=== PATIENT | female | born 1975 | race Caucasian/White ===

== ENCOUNTER 2019-07-27 08:47 | Observation (INO) ==
[2019-07-27] MEDS ORDERED: PROCHLORPERAZINE EDISYLATE 5 MG/ML VIAL IM ONE (09:25)
[2019-07-27] MEDS ORDERED: diphenhydrAMINE HCL 50 MG/ML VIAL IM ONE (09:25)
--- NOTE | 2019-07-27 09:31 | ERNOTE ---
Medical Problem HPI - Narrative Date of Service: 07/27/19 - General Chief Complaint: General Assessment Time Seen by Provider: 07/27/19 09:17 Source: patient Exam Limitations: no limitations - Immun/Allergies/Home Medications Immunizations: IMMUNIZATION HX Immunizations Up to Date Yes History of Influenza Vaccine No Hx Pneumococcal Vaccination No Allergies/Adverse Reactions: Allergies aspirin Allergy (Intermediate, Verified 07/22/19 08:09) Swelling of Face prednisone Allergy (Verified 07/22/19 08:09) Anaphylaxis Home Medications: HOME MEDICATIONS Amitriptyline HCl 100 mg PO HS 09/03/18 [Last Taken Unknown] Butalbital/Aspirin/Caffeine [Llfpyednvb-YDB-Xdluomzc Cap] 1 tab PO Q4H PRN 09/03/18 [Last Taken 09/03/18 12:00] Divalproex Sodium [Depakote] 1,000 mg PO DAILY 09/03/18 [Last Taken Unknown] Divalproex Sodium [Depakote] 1,500 mg PO HS 09/03/18 [Last Taken Unknown] Citalopram Hydrobromide [Celexa] 20 mg PO DAILY 02/01/19 [Last Taken Unknown] Eslicarbazepine Acetate [Aptiom] 800 mg PO DAILY 02/01/19 [Last Taken Unknown] LORazepam [Ativan] 1 mg PO PRN PRN 02/01/19 [Last Taken Unknown] Lacosamide [Vimpat] 200 mg PO DAILY 02/01/19 [Last Taken Unknown] Ondansetron [Zofran Odt] 4 mg PO Q6H PRN #20 tab 02/01/19 [Last Taken Unknown] Escitalopram Oxalate [Lexapro] 20 mg PO DAILY 07/22/19 [Last Taken Unknown] - History of Present History Narrative: Patient presents to the ED for not feeling well. She has a seizure Thursday and has not felt well since. She is concerned about Covid-19 because she had an exposure. She feels achy all over. Feels like she has had a fever. Has been coughing, bringing up sputum but does not know the color. Feels nauseated and occasional vomiting. Diarrhea also with this. No abdominal pain. No dysuria. Was seen for the seizure. States she missed work all week and will need a work note. Chest tightness, no specific CP, tightness mostly with cough. Timing: constant Severity: moderate Modifying Factors - (Improves): Present: other - nothing Modifying Factors - (Worsens): Present: other - nothing Review of Systems - Review of Systems Constitutional: Present: fever EYE: Present: no symptoms reported ENT: Absent: pulling on ears Respiratory: Present: cough Cardiology: Absent: chest pain, syncope Gastrointestinal/Abdominal: Present: nausea, vomiting, diarrhea. Absent: abdominal pain Genitourinary: Absent: dysuria Neurological: Absent: weakness All Other Systems: All systems neg except as marked Medical History (Last Reviewed 07/27/19 @ 09:30 by Rocky Rubi MD) Epilepsy Hx of endometriosis Hx of type 2 diabetes mellitus Surgical History: Surgical History (Last Reviewed 07/27/19 @ 09:30 by Rocky Rubi MD) Hx of bilateral oophorectomy Hx of gastric bypass Hx of hysterectomy Family History: Family History (Last Reviewed 07/27/19 @ 09:30 by Rocky Rubi MD) Other No pertinent family history Social History: (Last Reviewed 07/27/19 @ 09:30 by Rocky Rubi MD) Tobacco: Smoking Status: Current every day smoker Smoking cigarettes per day: 20 Alcohol: alcohol intake: never Substance Use: substance use type: does not use Physical Exam - Physical Exam General Appearance: Present: alert, no apparent distress Head Exam: Present: normal inspection, no evidence of injury Eye Exam: Normal inspection: bilateral, PERRL: bilateral Ears, Nose, Throat: Present: normal ENT inspection Neck: Present: normal inspection Respiratory: Present: no respiratory distress, normal breath sounds, no accessory muscle use, lungs clear Cardiovascular/Chest: Present: regular rate, rhythm, normal peripheral pulses Gastrointestinal/Abdominal: Present: normal bowel sounds, nontender, soft, other - I can elicit no tenderness in the abdomen Back Exam: Absent: CVA tenderness (R), CVA tenderness (L) Extremity Exam: Present: normal inspection, normal range of motion Neurological Exam: Present: alert, no motor/sensory deficits Skin Exam: Present: normal color, warm/dry Progress - Results and Orders Patient's Lab Results:: I have reviewed the patient's lab results. - Vital Signs Patient's Vital Signs:: I have reviewed the patient's vital signs. Vital Signs: Vital Signs 07/27/19 08:53 Temperature 36.4 C Pulse Rate 96 Respiratory Rate 16 Blood Pressure 122/89 O2 Sat by Pulse Oximetry 97 - EKG EKG #1 EKG: NSR EKG read: Interp. by me EKG Comments: NSR rate 83. No evidence of acute infarct or ischemic pattern. - X-Ray X-Ray #1 X-Ray: chest Interpretation: Interp. by me X-ray Comments: I reviewed official radiology report - Progress/Reassessment Chief Complaint: General Assessment Progress Note-Subjective: 07/27/19 13:36 Patient given IV fluids and IV ABx. ASA given (she does not have a true allergy.). Non-specific chest tightness for days with minimally elevated troponin, no STEMI non EKG, needs troponin trending. She understands no Cardi ology here and would like to stay here. D/W Dr Jenkins who will admit. Covid-19 testing negative. I discussed the trichomonas testing with her. Departure Clinical Impression: Elevated troponin, UTI (urinary tract infection), Vomiting and diarrhea, Trichomoniasis - Departure Disposition: Still a patient Condition: Stable
[2019-07-27 10:18] LABS: Hematocrit 40.4 % (37.0-47.0); Hemoglobin 13.5 gm/dL (12.5-16.0); Mean Cell Volume 99.3 fl (78-100); Mean Corpuscular Hemoglobin 33.2 pg (27-31); Mean Corpuscular Hgb Conc 33.4 g/dl (32-36); Mean Platelet Volume 10.8 fl (8-12.5); Neutrophil # 7.9 K/mm3 (1.3-6.0); Neutrophil % 76.5 % (42-75.0); Platelet Count 216 K/mm3 (150-450); Red Blood Count 4.07 M/mm3 (4.2-5.4); Red Cell Distribution Width 12.7 % (11.5-14.0); White Blood Count 10.3 K/mm3 (4.0-10.5)
[2019-07-27 10:35] LABS: ALT 19 U/L (19-67); AST 20 U/L (0-48); Albumin * 3.7 gm/dl (3.4-5.0); Alkaline Phosphatase * 81 U/L (50-170); Anion Gap 9.7 mmol/L (6.8-13.8); BUN/Creatinine Ratio 8.5 (9.0-21.6); Bilirubin, Total 0.4 mg/dL (0.0-1.1); Blood Urea Nitrogen 10 mg/dL (3-23); CK Total * 88 U/L (0-259); Ca. Corrected For Albumin 8.6 mg/dL (8.4-10.2); Calcium * 8.7 mg/dL (7.9-10.9); Carbon Dioxide 28.6 mmol/L (24-32.6); Chloride 104 mmol/L (97-106); Glucose * 111 mg/dL (70-110); Potassium 4.3 mmol/L (3.4-4.6); Sodium 138 mmol/L (132-142); Total Protein 7.6 gm/dL (6.2-8.2)
[2019-07-27 10:59] LABS: Troponin I 0.119 ng/mL (0.00-0.10)
[2019-07-27] MEDS ORDERED: NITROGLYCERIN 0.4 MG/TAB BTL SL ONE (11:07)
[2019-07-27] MEDS ORDERED: ASPIRIN 81 MG TAB.CHEW PO ONE (11:07)
[2019-07-27] MEDS ORDERED: NORMAL SALINE 1,000 ML IV ONE ×2 (11:22→16:55)
[2019-07-27 11:53] LABS: Urine Bilirubin Negative (NEGATIVE); Urine Blood Negative /ul (NEGATIVE); Urine Ketone Negative (NEGATIVE); Urine Nitrite Negative (NEGATIVE); Urine Protein 15 mg/dL (NEGATIVE); Urine pH 7.5 pH (5.0-7.0)
[2019-07-27 12:15] LABS: Urine Appearance Slightly Cloudy (CLEAR); Urine Color Yellow; Urine WBC 25-50 /hpf (0-5)
[2019-07-27 12:16] LABS: Urine Bacteria 3+; Urine RBC None Seen /hpf (0-5); Urine Trichomonas Few - 1+
[2019-07-27] MEDS ORDERED: cefTRIAXone SODIUM 1,000 MG/100 ML BAG IV ONE (12:29)
[2019-07-27] MEDS ORDERED: metroNIDAZOLE 500 MG TABLET PO ONE (12:30)
[2019-07-27] MEDS ORDERED: ONDANSETRON HCL/PF 2 MG/ML VIAL IV PRN (16:24)
[2019-07-27] MEDS ORDERED: ACETAMINOPHEN 325 MG TABLET PO PRN (16:25)
[2019-07-27] MEDS ORDERED: LOPERAMIDE HCL 2 MG CAPSULE PO PRN (16:25)
[2019-07-27] MEDS ORDERED: clonazePAM 1 MG TABLET PO PRN (16:30)
[2019-07-27] MEDS ORDERED: BUTALBITAL PO PRN (16:30)
[2019-07-27] MEDS ORDERED: CAFFEINE PO PRN (16:30)
[2019-07-27] MEDS ORDERED: ASPIRIN PO PRN (16:30)
--- NOTE | 2019-07-27 17:15 | HP ---
Chief Complaint - Chief Complaint Date of Service: 07/27/19 Time of Service: 16:56 Chief Complaint: I have chest pressure, fever, nausea, vomiting, and diarrhea since Thursday. History of Present Illness: 43-year-old female with past medical history of epilepsy, morbid obesity, type 2 diabetes, gestational diabetes, gastric bypass surgery was evaluated in the ER due to worsening malaise and fever and chills for several days duration. Patient reports she had 1 of her seizures last Thursday at her home and fell down in her kitchen, she was subsequently found by her sister who took her to the ER. After thorough evaluation the patient was restarted on her usual seizure medication and was discharged home. She reports since that episode she has been achy all over her body and weak. She also reports developing fever accompanied with occasional chills the following day. Since then the patient reports feeling acutely ill and just not herself. Initially the patient attributed her symptoms to the seizure however after being informed that she had an exposure to COVID-19 from a cousin who was diagnosed positive last week she became concerned that she was also infected with a virus. She gradually got weaker and developed nausea and vomiting making it difficult to keep down her meds and she eventually developed nonbloody diarrhea. The last episode of diarrhea that she can remember occurred yesterday evening while at home. This morning the patient symptoms worsened and she felt seriously weak and was alarmed enough to come to the hospital. Once she got to the ER she reported retrosternal chest pressure that did not radiate and there was not accompanied by other cardiac symptoms and she was found to have an elevated troponin, other results that were remarkable was a decreased GFR compared to her previous. She also had a urinalysis that revealed infection with trichomonas, patient was administered a dose of a cephalosporin and metronidazole. She reports being with her boyfriend for more than 6 years and denies any symptoms of sexually transmitted diseases. She denies being diagnosed with trichomonas in the past. Medical History (Last Reviewed 07/27/19 @ 14:40 by Sylvia Baird RN) Epilepsy Hx of endometriosis Hx of type 2 diabetes mellitus Surgical History: Surgical History (Last Reviewed 07/27/19 @ 14:40 by Sylvia Baird RN) Hx of bilateral oophorectomy Hx of gastric bypass Hx of hysterectomy Family History: Family History (Last Reviewed 07/27/19 @ 14:40 by Sylvia Baird RN) Other No pertinent family history Social History: (Last Reviewed 07/27/19 @ 14:40 by Sylvia Baird RN) Tobacco: Smoking Status: Current every day smoker Smoking cigarettes per day: 20 Alcohol: alcohol intake: never Substance Use: substance use type: does not use Peds Patient Hx - Developmental: No Pertinent Hx Peds Patient Hx - Medical: No Pertinent Hx Peds Patient Hx - Cardiac/Respiratory: No Pertinent Hx Peds Patient Hx - Surgical: No Surgical History Patient History - Cancer: No Hx of Cancer Review Of Systems (GEN) - Review of Systems Generalized/Overall Review: Present: Chills, Fever EENTM: Present: No Symptoms Reported Respiratory: Present: No Symptoms Reported Cardiac: Present: Other - Chest pressure Abdominal: Present: Nausea, Vomiting, Diarrhea Genitourinary: Present: No Symptoms Reported Musculoskeletal: Present: No Symptoms Reported Neurological: Present: Seizure - Generalized seizure last Thursday Endocrine: Present: No Symptoms Reported Immunizations: IMMUNIZATION HX Immunizations Up to Date Yes History of Influenza Vaccine No Hx Pneumococcal Vaccination No Allergies/Adverse Reactions: Allergies Allergy/AdvReac Type Severity Reaction Status Date / Time aspirin Allergy Intermediate Swelling Verified 07/27/19 14:40 of Face prednisone Allergy Anaphylaxis Verified 07/27/19 14:40 Home Medications: HOME MEDICATIONS Amitriptyline HCl 100 mg PO HS 09/03/18 [Last Taken Unknown] Butalbital/Aspirin/Caffeine [Cbgcmlsslo-SFM-Lbyulpwn Cap] 1 tab PO BID PRN 09/03/18 [Last Taken 09/03/18 12:00] Divalproex Sodium [Depakote] 500 mg PO TID 09/03/18 [Last Taken Unknown] Eslicarbazepine Acetate [Aptiom] 800 mg PO DAILY 02/01/19 [Last Taken Unknown] Lacosamide [Vimpat] 200 mg PO DAILY 02/01/19 [Last Taken Unknown] Escitalopram Oxalate [Lexapro] 20 mg PO DAILY 07/22/19 [Last Taken Unknown] Clonazepam 1 mg PO Q6H PRN 07/27/19 [Last Taken Unknown] Norethindrone [Norlyda] 0.35 mg PO DAILY 07/27/19 [Last Taken Unknown] Exam - Exam Vital Signs: Vital Signs - Last Taken Temp 36.8 C 07/27/19 14:35 Pulse 76 07/27/19 16:03 Resp 16 07/27/19 14:35 BP 96/40 07/27/19 14:35 Pulse Ox 95 07/27/19 14:35 Constitutional: Present: Alert, Oriented x3, Cooperative, Well developed, Well nourished, No distress, Other - Patient appears dehydrated, Morbidly obese ENT Exam: Present: normal ENT inspection, hearing grossly normal, pharynx normal, TMs normal Eye Exam: bilateral eye: normal inspection, PERRL, EOMI Neck: Present: non-tender, full range of motion, supple, normal inspection, trachea midline Back Exam: Present: normal inspection, no CVA tenderness, no vertebral tenderness Breasts: Present: Exam deferred, Nontender Respiratory: Present: chest non-tender, lungs clear, normal breath sounds, no respiratory distress, no accessory muscle use Cardiovascular/Chest: Present: normal peripheral pulses, regular rate, rhythm, no chest tenderness, no edema, no gallop, no JVD, no murmur, no rub Peripheral Pulses: carotid (R): 3+, carotid (L): 3+, femoral (R): 3+, femoral (L): 3+, dorsalis-pedis (R): 3+, dorsalis-pedis (L): 3+ Abdomen: Present: Normal bowel sounds, soft, nontender, nondistended, no rebound tenderness, no hepatospenomegaly, no masses, obese /Rectal: Present: Exam deferred Extremity: Present: normal range of motion, non-tender, normal inspection, no pedal edema, no calf tenderness, pelvis stable, slow capillary refill Skin Exam: Present: normal color, warm/dry, no cyanosis Lymphatic: Present: no adenopathy Neurologic: Present: state game warden II-XII nml as tested, normal cerebellar test, no motor/sensory deficits, alert, normal mood/affect, oriented x 3 Appearance: Present: appropriate appearance, appropriate insight, neat, no memory impairment Eye contact: Present: cooperative, good eye contact, normal speech Thoughts: Present: normal thought pattern, no apparent hallucination Diagnostic Studies: Abnormal Lab Results 07/27/19 07/27/19 07/27/19 Range/Units 09:30 10:15 10:15 RBC 4.07 L (4.2-5.4) M/mm3 MCH 33.2 H (27-31) pg Immature Gran % (Auto) 0.50 H (0.001-0.429) % Immature Gran # (Auto) 0.05 H (0.000-0.0310) K/mm3 Neutrophils % 76.5 H (42-75.0) % Lymphocytes % 16.8 L (20-51) % Neutrophils # 7.9 H (1.3-6.0) K/mm3 Est GFR (Non-Af Amer) 54 L D (60-130) mL/min BUN/Creatinine Ratio 8.5 L (9.0-21.6) Random Glucose 111 H (70-110) mg/dL Troponin I 0.119 H* (0.00-0.10) ng/mL Urine Protein 15 H (NEGATIVE) mg/dL Urine Urobilinogen 2.0 H (NORMAL) EU/dl Ur Leukocyte Esterase 75 H (NEGATIVE) /ul Urine WBC 25-50 H (0-5) /hpf Ur Epithelial Cells 5-10 H (0-5) /hpf Urine Bacteria 3+ H (NONE) Urine Trichomonas Few - 1+ H (NONE) Valproic Acid Less than 3.0 L (50.0-100.0) mcg/mL 07/27/19 Range/Units 16:35 RBC (4.2-5.4) M/mm3 MCH (27-31) pg Immature Gran % (Auto) (0.001-0.429) % Immature Gran # (Auto) (0.000-0.0310) K/mm3 Neutrophils % (42-75.0) % Lymphocytes % (20-51) % Neutrophils # (1.3-6.0) K/mm3 Est GFR (Non-Af Amer) (60-130) mL/min BUN/Creatinine Ratio (9.0-21.6) Random Glucose (70-110) mg/dL Troponin I 0.106 H (0.00-0.10) ng/mL Urine Protein (NEGATIVE) mg/dL Urine Urobilinogen (NORMAL) EU/dl Ur Leukocyte Esterase (NEGATIVE) /ul Urine WBC (0-5) /hpf Ur Epithelial Cells (0-5) /hpf Urine Bacteria (NONE) Urine Trichomonas (NONE) Valproic Acid (50.0-100.0) mcg/mL Laboratory Results WBC 10.3 K/mm3 (4.0-10.5) 07/27/19 10:15 RBC 4.07 M/mm3 (4.2-5.4) L 07/27/19 10:15 Hgb 13.5 gm/dL (12.5-16.0) 07/27/19 10:15 Hct 40.4 % (37.0-47.0) 07/27/19 10:15 MCV 99.3 fl (78-100) 07/27/19 10:15 MCH 33.2 pg (27-31) H 07/27/19 10:15 MCHC 33.4 g/dl (32-36) 07/27/19 10:15 RDW 12.7 % (11.5-14.0) 07/27/19 10:15 Plt Count 216 K/mm3 (150-450) 07/27/19 10:15 MPV 10.8 fl (8-12.5) 07/27/19 10:15 Immature Gran % (Auto) 0.50 % (0.001-0.429) H 07/27/19 10:15 Immature Gran # (Auto) 0.05 K/mm3 (0.000-0.0310) H 07/27/19 10:15 Neutrophils % 76.5 % (42-75.0) H 07/27/19 10:15 Lymphocytes % 16.8 % (20-51) L 07/27/19 10:15 Monocytes % 4.4 % (0.0-9) 07/27/19 10:15 Eosinophils % 1.5 % (0.0-3.0) 07/27/19 10:15 Basophils % 0.3 % (0.0-1.0) 07/27/19 10:15 Nucleated RBC % 0.0 k/mm3 (0-1) 07/27/19 10:15 Neutrophils # 7.9 K/mm3 (1.3-6.0) H 07/27/19 10:15 Lymphocytes # 1.73 k/mm3 (1.5-3.5) 07/27/19 10:15 Monocytes # 0.5 k/mm3 (0.0-1.0) 07/27/19 10:15 Eosinophils # 0.2 k/mm3 (0.0-0.7) 07/27/19 10:15 Absolute Basophils 0.0 k/mm3 (0.0-0.1) 07/27/19 10:15 D-Dimer 0.19 ug/mL (0.19-0.49) 07/27/19 11:05 Sodium 138 mmol/L (132-142) 07/27/19 10:15 Plasma Sodium 138 mmol/L (130-142) 07/27/19 10:15 Potassium 4.3 mmol/L (3.4-4.6) 07/27/19 10:15 Chloride 104 mmol/L (97-106) 07/27/19 10:15 Carbon Dioxide 28.6 mmol/L (24-32.6) 07/27/19 10:15 Anion Gap 9.7 mmol/L (6.8-13.8) 07/27/19 10:15 BUN 10 mg/dL (3-23) 07/27/19 10:15 Creatinine 1.17 mg/dL (0.4-1.4) 07/27/19 10:15 Est GFR (Non-Af Amer) 54 mL/min (60-130) L D 07/27/19 10:15 BUN/Creatinine Ratio 8.5 (9.0-21.6) L 07/27/19 10:15 Random Glucose 111 mg/dL (70-110) H 07/27/19 10:15 Calcium 8.7 mg/dL (7.9-10.9) 07/27/19 10:15 Calcium Adj for Albumin 8.6 mg/dL (8.4-10.2) 07/27/19 10:15 Total Bilirubin 0.4 mg/dL (0.0-1.1) 07/27/19 10:15 AST 20 U/L (0-48) 07/27/19 10:15 ALT 19 U/L (19-67) 07/27/19 10:15 Alkaline Phosphatase 81 U/L (50-170) 07/27/19 10:15 Creatine Kinase 88 U/L (0-259) 07/27/19 10:15 Troponin I 0.106 ng/mL (0.00-0.10) H 07/27/19 16:35 Total Protein 7.6 gm/dL (6.2-8.2) 07/27/19 10:15 Albumin 3.7 gm/dl (3.4-5.0) 07/27/19 10:15 Urine Color Yellow 07/27/19 09:30 Urine Appearance Slightly cloudy (CLEAR) 07/27/19 09:30 Urine pH 7.5 pH (5.0-7.0) 07/27/19 09:30 Ur Specific [place] 1.010 SP.GR. (1.005-1.010) 07/27/19 09:30 Urine Protein 15 mg/dL (NEGATIVE) H 07/27/19 09:30 Urine Glucose (UA) Negative mg/dL (NEGATIVE) 07/27/19:30 Urine Ketones Negative mg/dL (NEGATIVE) 07/27/19:30 Urine Blood Negative /ul (NEGATIVE) 07/27/19:30 Urine Nitrate Negative (NEGATIVE) 07/27/19:30 Urine Bilirubin Negative mg/dl (NEGATIVE) 07/27/19:30 Prot Sulfosalicylic Acd Negative mg/dL (0) 07/27/19:30 Urine Urobilinogen 2.0 EU/dl (NORMAL) H 07/27/19 09:30 Ur Leukocyte Esterase 75 /ul (NEGATIVE) H 07/27/19 09:30 Urine RBC None seen /hpf (0-5) 07/27/19:30 Urine WBC 25-50 /hpf (0-5) H 07/27/19 09:30 Ur Epithelial Cells 5-10 /hpf (0-5) H 07/27/19:30 Urine Bacteria 3+ (NONE) H 07/27/19:30 Urine Trichomonas Few - 1+ (NONE) H 07/27/19 09:30 Urine Culture Comments Culture to follow 07/27/19:30 Valproic Acid Less than 3.0 mcg/mL (50.0-100.0) L 07/27/19 10:15 SARS-CoV-2 (PCR) Not detected (ND) 07/27/19 09:40 Assessment/Plan - Narrative Narrative: Patient was evaluated and medical chart was reviewed and decision to admit for dehydration due to acute gastroenteritis, poor oral intake, and elevated trop onin was made. Repeat troponin done at 6 hours demonstrate a downward trend and the patient reports complete resolution of any chest pressure. The elevated troponin could be explained by the acute illness or may be even her generalized seizure from several days prior. We do not have any prior troponins for her given her lack of cardiac history. She appears comfortable but it is very obvious that she is dehydrated given her paleness weakness and slow capillary refill. She has been administered 1 bolus of IV fluids in the ER we will administer another in an effort to rehydrate her. We will also administer additional doses of metronidazole to treat her trichomoniasis. The elevated troponin was explained to her and we discussed that anytime you have elevated cardiac enzymes there is always a chance of a cardiac event however her EKG was unremarkable for any ischemic or acute changes. Given her recent exposure to COVID-19 and her presenting symptoms the patient underwent screening for the virus and results were negative. We will keep her on telemetry and continue to monitor her closely. - Assessment/Plan (1) Acute gastroenteritis Problem: Acute (2) Epilepsy Problem: Acute (3) Elevated troponin Problem: Acute (4) UTI (urinary tract infection) Problem: Acute (5) Trichomoniasis Problem: Acute (6) Bariatric surgery status Problem: Acute (7) H/O diabetes mellitus Problem: Chronic (8) Dehydration Problem: Acute
[2019-07-27] MEDS: LACOSAMIDE 200 MG TABLET PO SCH (19:01)
[2019-07-27] MEDS: DIVALPROEX SODIUM 500 MG TABLET.DR PO SCH (19:02)
[2019-07-27] MEDS: metroNIDAZOLE 500 MG TABLET PO SCH (19:13)
[2019-07-27] MEDS ORDERED: AMITRIPTYLINE HCL 50 MG TABLET PO SCH (21:00)
[2019-07-27] MEDS ORDERED: AMITRIPTYLINE HCL 25 MG TABLET PO SCH (21:30)
[2019-07-28] MEDS: metroNIDAZOLE 500 MG TABLET PO SCH ×2 (01:19→09:40)
[2019-07-28] MEDS ORDERED: ESCITALOPRAM OXALATE 10 MG TAB PO SCH (09:00)
[2019-07-28] MEDS: LACOSAMIDE 200 MG TABLET PO SCH (09:40)
[2019-07-28] MEDS: DIVALPROEX SODIUM 500 MG TABLET.DR PO SCH (09:40)
--- NOTE | 2019-07-28 09:43 | DS ---
(1) Acute gastroenteritis Problem: Resolved (2) Epilepsy Problem: Chronic (3) Elevated troponin Problem: Ruled-out (4) UTI (urinary tract infection) Problem: Acute (5) Trichomoniasis Problem: Acute (6) Bariatric surgery status Problem: Chronic (7) H/O diabetes mellitus Problem: Chronic (8) Dehydration Problem: Resolved (9) Decreased oral intake Problem: Resolved Date of Discharge:: 07/28/19 Hospital Course: 43-year-old female admitted for dehydration secondary to acute gastroenteritis and decreased oral intake, UTI, and elevated troponin was e valuated at bedside and was found to be afebrile and in no acute distress. Patient has shown significant clinical improvement compared to when she arrived to our facility, this morning she appears more energetic and alert. She is also in a better mood and more talkative than when she arrived. Patient had elevated troponins on admission however repeat troponin revealed a downward trend and patient denied any recurrence of chest pressure or new onset chest pain. Given her clinical presentation and the lack of cardiac history, in my professional opinion it is very unlikely that the patient had a cardiac event. Elevated troponins can be explained by acute illness and given the patient's dehydration due to gastroenteritis and UTI that was most likely the cause. There has been no recurrence of fever and the patient denies chills. Her urine culture shows growth of beta-hemolytic strep, therefore in addition to additional days of oral Flagyl to cover trichomonas the patient will be discharged with oral Bactrim to treat her UTI and additional days of Zofran for any nausea or vomiting. She was instructed to follow-up with her PCP in 1 week. Procedures Performed: none Results and Findings: Pending Mircobiology Results 07/27/19 09:30 Urine,Voided Urine Culture - Preliminary Beta Hemolytic Strep Lab Pending Results 07/27/19 09:30: Urine Color Yellow, Urine Appearance Slightly cloudy, Urine pH 7.5, Ur Specific [place] 1.010, Urine Protein 15 H, Urine Glucose (UA) Negative, Urine Ketones Negative, Urine Blood Negative, Urine Nitrate Negative, Urine Bilirubin Negative, Prot Sulfosalicylic Acd Negative, Urine Urobilinogen 2.0 H, Ur Leukocyte Esterase 75 H, Urine RBC None seen, Urine WBC 25-50 H, Ur Epithelial Cells 5-10 H, Urine Bacteria 3+ H, Urine Trichomonas Few - 1+ H, Urine Culture Comments Culture to follow 07/27/19 09:40: SARS-CoV-2 (PCR) Not detected 07/27/19 10:15: WBC 10.3, RBC 4.07 L, Hgb 13.5, Hct 40.4, MCV 99.3, MCH 33.2 H, MCHC 33.4, RDW 12.7, Plt Count 216, MPV 10.8, Immature Gran % (Auto) 0.50 H, Immature Gran # (Auto) 0.05 H, Neutrophils % 76.5 H, Lymphocytes % 16.8 L, Monocytes % 4.4, Eosinophils % 1.5, Basophils % 0.3, Nucleated RBC % 0.0, Neutrophils # 7.9 H, Lymphocytes # 1.73, Monocytes # 0.5, Eosinophils # 0.2, Absolute Basophils 0.0 07/27/19 10:15: Sodium 138, Plasma Sodium 138, Potassium 4.3, Chloride 104, Carbon Dioxide 28.6, Anion Gap 9.7, BUN 10, Creatinine 1.17, Est GFR (Non-Af Amer) 54 L D, BUN/Creatinine Ratio 8.5 L, Random Glucose 111 H, Calcium 8.7, Calcium Adj for Albumin 8.6, Total Bilirubin 0.4, AST 20, ALT 19, Alkaline Phosphatase 81, Creatine Kinase 88, Troponin I 0.119 H*, Total Protein 7.6, Albumin 3.7, Valproic Acid Less than 3.0 L 07/27/19 11:05: D-Dimer 0.19 07/27/19 16:35: Troponin I 0.106 H Discharge Location: Home Disposition: Home self-care Condition: Stable Face to Face Encounter completed per CMS Guidelines: No Discharge Activity: Activity as tolerated Discharge Diet: General/regular food Problem Oriented Discharge Instructions to Patient/Family: Form - Excuse from Work, School, or Physical Activity Prescriptions (Any new or edited meds): Sulfamethoxazole/Trimethoprim [Bactrim Ds] 1 tab PO BID 5 Days #20 tab Transmission Status: Pending to [facility] #[id number] metroNIDAZOLE [Flagyl] 500 mg PO Q12H 6 Days #12 tab Transmission Status: Pending to [facility] #[id number] Loperamide HCl [Imodium] 2 mg PO PRN PRN #30 cap PRN Reason: Diarrhea Transmission Status: Pending to [facility] #[id number] Ondansetron HCl [Zofran] 4 mg PO Q4H #20 tab Transmission Status: Pending to [facility] #[id number] Complete Home Medications List: Complete Home Medication List: Amitriptyline HCl 100 mg PO HS 09/03/18 Butalbital/Aspirin/Caffeine [Ysuxbbkfvg-RFI-Hdgoyrpf Cap] 1 tab PO BID PRN 09/03/18 Divalproex Sodium [Depakote] 500 mg PO TID 09/03/18 Eslicarbazepine Acetate [Aptiom] 800 mg PO DAILY 02/01/19 Lacosamide [Vimpat] 200 mg PO DAILY 02/01/19 Escitalopram Oxalate [Lexapro] 20 mg PO DAILY 07/22/19 Clonazepam 1 mg PO Q6H PRN 07/27/19 Norethindrone [Norlyda] 0.35 mg PO DAILY 07/27/19 Loperamide HCl [Imodium] 2 mg PO PRN PRN #30 cap 07/28/19 Ondansetron HCl [Zofran] 4 mg PO Q4H #20 tab 07/28/19 Sulfamethoxazole/Trimethoprim [Bactrim Ds] 1 tab PO BID 5 Days #20 tab 07/28/19 metroNIDAZOLE [Flagyl] 500 mg PO Q12H 6 Days #12 tab 07/28/19
[2019-07-28 10:22] VITALS: BP 106/63
== END 2019-07-28 10:40 | disposition home or self-care (01) ==
LOC: MS 08:47 → ER 08:47 → MS 13:50
PROVIDERS: ADMIT Family Medicine; ATTEND Family Medicine
CPT/HCPCS: 36415; 71020; 71046; 80053; 80164; 81001; 82550; 84484; 85025; 85379; 87086; 93005; 96361; 96365; 96372; 99285; G0378; U0001